=== PATIENT | male | born 1985 | race Caucasian/White ===

== ENCOUNTER 2017-01-10 03:33 | Emergency (ER) | payer OTHER ==
[2017-01-10 03:43] VITALS: BMI 29.8
[2017-01-10 03:51] VITALS: TEMP 97.2
--- NOTE | 2017-01-10 04:08 | ED PDOC ---
HPI: Psych/Substance Abuse Time Seen by Provider: 01/10/17 03:36 Chief Complaint (Nursing): Altered Mental Status Chief Complaint (Provider): Intoxication ED Caveat: Intoxicated History Per: EMS History/Exam Limitations: clinical condition, intoxication Additional Complaint(s): Patient is a 31 y/o male brought to the ED by EMS after he was found unresponsive in a chair at a local diner. EMS noted he was incontinent of urine on arrival. Patient was unable to provide history. PMD: None Provided Past Medical History Reviewed: Historical Data, Nursing Documentation, Vital Signs Vital Signs: Last Vital Signs Temp 97.2 F L 01/10/17 03:40 Pulse 83 01/10/17 03:40 Resp 18 01/10/17 03:40 BP 119/53 L 01/10/17 03:40 Pulse Ox 98 01/10/17 03:40 - Family History Family History: States: Unknown Family Hx - Home Medications Home Medications: Ambulatory Orders Medication Instructions Recorded No Known Home Med 01/10/17 - Allergies Allergies/Adverse Reactions: Allergies Allergy/AdvReac Type Severity Reaction Status Date / Time Unobtainable Allergy Verified 01/10/17 03:40 Review of Systems Review Of Systems: ROS cannot be obtained secondary to pt's inabilty to answer questions. Physical Exam - Reviewed Nursing Documentation Reviewed: Yes Vital Signs Reviewed: Yes - Physical Exam Appears: Positive for: Non-toxic, No Acute Distress Head Exam: Positive for: ATRAUMATIC, NORMAL INSPECTION, NORMOCEPHALIC Skin: Positive for: Normal Color, Warm, Dry Eye Exam: Positive for: Normal appearance, EOMI, PERRL. Negative for: Nystagmus ENT: Positive for: Normal ENT Inspection Neck: Positive for: Normal, Painless ROM, Supple Cardiovascular/Chest: Positive for: Regular Rate, Rhythm. Negative for: Edema, Murmur Respiratory: Positive for: Normal Breath Sounds. Negative for: Wheezing, Respiratory Distress Gastrointestinal/Abdominal: Positive for: Normal Exam, Bowel Sounds, Soft. Negative for: Tenderness Male Genital Exam: Positive for: other (incontinent of urine) Back: Positive for: Normal Inspection Extremity: Positive for: Normal ROM. Negative for: Pedal Edema, Deformity Neurologic/Psych: Positive for: Oriented. Negative for: Alert (arousable to movement) - Laboratory Results Result Diagrams: 01/10/17 03:57 01/10/17 03:57 - ECG O2 Sat by Pulse Oximetry: 98 (RA) Pulse Ox Interpretation: Normal Medical Decision Making Medical Decision Making: Time: 3:43 Initial Impression: 31 y/o male with possible substance or alcohol related intoxication Initial Plan: --CT Head w/o Contrast --EKG --Alcohol Serum --CMP --Urine Drug Screen --CBC --Accucheck Scribe Attestation: Documented by Charles aFgan, acting as a scribe for Dr. Kervin Casillas MD. Provider Scribe Attestation: All medical record entries made by the Scribe were at my direction and personally dictated by me. I have reviewed the chart and agree that the record accurately reflects my personal performance of the history, physical exam, medical decision making, and the department course for this patient. I have also personally directed, reviewed, and agree with the discharge instructions and disposition. Disposition - Clinical Impression Clinical Impression: Alcohol intoxication - Patient ED Disposition Is Patient to be Admitted: Transfer of Care - Disposition Disposition: Transfer of Care Disposition Time: 07:00 Condition: STABLE Instructions: Alcohol Intoxication (ED) Forms: [employer] (Welsh) Patient Signed Over To: Bill Arellano III
[2017-01-10 05:26] LABS: BASO # 0.1 K/uL (0.0-0.2); BASO % 1.1 % (0.0-2.0); EOS # 0.1 K/uL (0.0-0.7); EOS % 1.2 % (0.0-4.0); HEMATOCRIT 45.7 % (35.0-51.0); LYMPH # 3.8 K/uL (1.0-4.3); LYMPH % 34.6 % (20.0-40.0); MEAN CELL VOLUME 84.7 fl (80.0-94.0); MEAN CORPUSCULAR HEMOGLOBIN 28.1 pg (27.0-31.0); MEAN CORPUSCULAR HGB CONC 33.2 g/dL (33.0-37.0); MEAN PLATELET VOLUME 8.9 fl (7.2-11.7); MONO # 0.9 K/uL (0.0-0.8); MONO % 8.4 % (0.0-10.0); NEUT # 6.1 K/uL (1.8-7.0); NEUT % 54.7 % (50.0-75.0); NRBC % 0.1 % (0.0-0.0); RED CELL DISTRIBUTION WIDTH 12.9 % (11.5-14.5)
[2017-01-10 05:37] LABS: ALB/GLOB RATIO 1.3 (1.0-2.1); ALKALINE PHOSPHATASE 147 U/L (38-126); ALT/SGPT 117 U/L (21-72); AST/SGOT 56 U/L (17-59); BILIRUBIN,TOTAL 0.4 mg/dl (0.2-1.3); BLOOD UREA NITROGEN 6 mg/dl (9-20); CALCIUM 9.1 mg/dL (8.4-10.2); CARBON DIOXIDE 21 mmol/L (22-30); CHLORIDE 105 mmol/L (98-107); GFR AFRICAN-AMERICAN > 60; GLUCOSE,RANDOM 116 mg/dL (75-110); POTASSIUM 3.2 MMOL/L (3.6-5.0); SODIUM 145 mmol/l (132-148); TOTAL PROTEIN 8.5 G/DL (6.3-8.2)
[2017-01-10 05:59] LABS: ALCOHOL SERUM 337 mg/dl (0-10)
[2017-01-10 06:50] VITALS: O2SAT 98
--- NOTE | 2017-01-10 07:04 | ED PDOC ---
- Laboratory Results Result Diagrams: 01/10/17 03:57 01/10/17 03:57 - ECG O2 Sat by Pulse Oximetry: 98 (RA) Pulse Ox Interpretation: Normal Medical Decision Making Medical Decision Makinam pending sobriety, re-eval 09 Reevaluation -Patient is awake and alert and ambulated to the bathroom with stable gait. He agrees to take an uber home. Scribe Attestation Documented by Taryn Ramirez acting as a scribe for Bill Arellano DO. Provider Attestation All medical record entries made by the Scribe were at my direction and personally dictated by me. I have reviewed the chart and agree that the record accurately reflects my personal performance of the history, physical exam, medical decision making, and the department course for this patient. I have also personally directed, reviewed, and agree with the discharge instructions and disposition. Disposition Counseled Patient/Family Regarding: Studies Performed, Diagnosis - Clinical Impression Clinical Impression: Alcohol intoxication - POA Present On Arrival: None - Disposition Disposition: Routine/Home Disposition Time: 09:00 Condition: STABLE Additional Instructions: Recommend alcohol in moderation only. Instructions: Alcohol Intoxication (ED), At-Risk Alcohol Use (ED) Forms: [employer] [facility] ([place]ijani)
[2017-01-10] MEDS ORDERED: Potassium Chloride 20 mEq ER Tab PO ONE (07:56)
--- NOTE | 2017-01-10 08:14 | CT ---
PROCEDURE: CT HEAD WITHOUT CONTRAST. HISTORY: Altered mental status COMPARISON: None available. TECHNIQUE: Axial computed tomography images were obtained through the head/brain without intravenous contrast. Radiation dose: Total exam DLP = 893.61 mGy-cm. This CT exam was performed using one or more of the following dose reduction techniques: Automated exposure control, adjustment of the mA and/or kV according to patient size, and/or use of iterative reconstruction technique. FINDINGS: HEMORRHAGE: No intracranial hemorrhage. BRAIN: Gao-white matter differentiation is preserved. There is no mass, mass effect or abnormal extra-axial fluid collection. VENTRICLES: The ventricles are normal in size, shape and configuration. CALVARIUM: Unremarkable. PARANASAL SINUSES: Predominantly clear. MASTOID AIR CELLS: Predominantly clear. OTHER FINDINGS: None. IMPRESSION: No acute intracranial abnormality. A preliminary report was provided by [employer].
--- NOTE | 2017-01-10 08:17 | CARD ---
APPROVED REPORT EKG Measurement Heart [id number] <Conclusion> Normal sinus rhythm Nonspecific ST abnormality Abnormal ECG
[2017-01-10 10:40] VITALS: BP 126/70; PULSE 87; RESP 16
== END 2017-01-10 10:40 | disposition home or self-care (01) ==
LOC: H.ER 03:33
DX: F10.129 Alcohol abuse with intoxication, unspecified (principal); R32 Unspecified urinary incontinence